=== PATIENT | male | born 1995 | race Caucasian/White ===

== ENCOUNTER 2023-06-25 23:45 | Emergency (ER) | payer BC ==
[~2023-06-25] VITALS: Ht 175.3 cm; Wt 79.4 kg
[2023-06-25 23:50] VITALS: BP 136/94; PULSE 76; RESP 20; TEMP 97.3; O2SAT 97
[2023-06-26] MEDS ORDERED: chlordiazePOXIDE 25 MG CAP PO SCH (00:50)
[2023-06-26] MEDS ORDERED: LIB25 PO ×2 (01:45→08:26)
[2023-06-26 02:09] VITALS: BP 126/87; PULSE 86; RESP 20; TEMP 97.2; O2SAT 97
== END 2023-06-26 02:09 | disposition home or self-care (01) ==
LOC: MED 23:45
DX: F10.239 Alcohol dependence with withdrawal, unspecified (principal); Y90.9 Presence of alcohol in blood, level not specified
CPT/HCPCS: 99283

== ENCOUNTER 2024-05-13 18:41 | Emergency (ER) | payer BC ==
[~2024-05-13] VITALS: Ht 175.3 cm; Wt 83.9 kg
[~2024-05-13 18:41] MED LIST: CHLO-757 PO
[2024-05-13 18:57] VITALS: BP 173/109; PULSE 83; RESP 18; TEMP 97.6; O2SAT 100
[2024-05-13 20:12] LABS: BASOPHILS # (AUTO) 0.1 K/uL (0.00-0.22); BASOPHILS % (AUTO) 0.7 % (0.0-2.0); EOSINOPHILS % (AUTO) 0.1 % (0.0-4.0); HEMATOCRIT 51.1 % (36-52); HEMOGLOBIN 17.8 g/dL (12.0-18.0); LYMPHOCYTES # (AUTO) 1.7 K/uL (2.0-11.5); LYMPHOCYTES % (AUTO) 19.3 % (20.5-51.1); MEAN CORPUSCULAR HEMOGLOBIN 32 pg (27-31); MEAN CORPUSCULAR HGB CONC 35 g/dL (33-37); MONOCYTES # (AUTO) 0.8 K/uL (0.8-1.0); MONOCYTES % (AUTO) 9.3 % (1.7-9.3); NEUTROPHILS # (AUTO) 6.1 K/uL (1.8-7.7); NEUTROPHILS % (AUTO) 70.6 % (42.2-75.2); PLATELET COUNT (AUTO) 316 K/uL (140-450); RED BLOOD CELL COUNT(AUTO) 5.49 MIL/uL (4.20-6.10); RED CELL DISTRIBUTION WIDTH 14.2 % (11.6-13.7); WHITE BLOOD COUNT (AUTO) 8.6 K/uL (4.8-10.8)
[2024-05-13 20:21] LABS: ANION GAP 15.5 (8-16); CALCIUM 8.9 mg/dL (8.5-10.1); CARBON DIOXIDE 28.2 mmol/L (21-32); CREATININE 1.1 mg/dL (0.6-1.3); POTASSIUM 3.7 mmol/L (3.5-5.1)
[2024-05-13] MEDS: diazePAM 5 MG TAB PO ONE (20:25)
[2024-05-13 20:27] LABS: ALBUMIN 4.5 g/dL (3.4-5.0); BILIRUBIN,DIRECT 0.3 mg/dL (0.0-0.3); TOTAL BILIRUBIN 1.1 mg/dL (0.0-1.0); TOTAL PROTEIN, SERUM 8.1 g/dL (6.4-8.2)
[2024-05-13 20:42] VITALS: BP 142/99; PULSE 69; RESP 14; TEMP 98.3; O2SAT 100
[2024-05-13] MEDS ORDERED: DIAZ-950 PO (21:04)
[2024-05-13] MEDS ORDERED: ONDA-188 PO (21:05)
== END 2024-05-13 21:09 | disposition home or self-care (01) ==
LOC: MED 18:41
DX: F10.239 Alcohol dependence with withdrawal, unspecified (principal); R00.2 Palpitations; K21.9 Gastro-esophageal reflux disease without esophagitis; I10 Essential (primary) hypertension; Z79.899 Other long term (current) drug therapy; Y90.0 Blood alcohol level of less than 20 mg/100 ml
CPT/HCPCS: 36415; 80048; 80076; 83690; 85025; 99283; G0482